=== PATIENT | female | born 1970 | race Caucasian/White ===

== ENCOUNTER → 2022-03-14 | Outpatient (CLI) | payer OTHER ==
[2022-03-14 19:59] LABS: Free Thyroxine 0.77 ng/dL (0.70-1.60)
[2022-03-14 20:02] LABS: Thyroid Stimulating Hormone 1.36 uIU/mL (0.360-4.800); Triiodothyronine, Free 3.44 pg/mL (2.18-3.98)
== END | disposition home or self-care (01) ==
LOC: LAB SHORT 12:05
PROVIDERS: Family Medicine
DX: E03.9 Hypothyroidism, unspecified (principal)
CPT/HCPCS: 84439; 84443; 84481

== ENCOUNTER → 2022-07-28 | Outpatient (CLI) | payer OTHER ==
[2022-07-28 19:35] LABS: BASOPHILS ABSOLUTE AUTO 0.05 K/mm3 (0.00-0.23); BASOPHILS PERCENT AUTO 1 % (0-2); EOSINOPHILS PERCENT AUTO 2 % (0-6); Hemoglobin 14.4 g/dL (11.5-16.0); IMMATURE GRAN ABSOLUTE AUTO 0.02 K/mm3 (0.00-0.10); IMMATURE GRAN PERCENT AUTO 0 % (0-1); LYMPHOCYTES ABSOLUTE AUTO 2.52 K/mm3 (0.84-5.20); LYMPHOCYTES PERCENT AUTO 43 % (21-46); MONOCYTES ABSOLUTE AUTO 0.23 K/mm3 (0.16-1.47); MONOCYTES PERCENT AUTO 4 % (4-13); Mean Corpuscular HGB 29.8 pg (26.0-34.0); Mean Corpuscular HGB Conc 34.3 g/dL (31.5-36.5); Mean Corpuscular Volume 87 fL (80-100); Mean Platelet Volume 10.4 fL (9.1-12.4); NEUTROPHILS PERCENT AUTO 51 % (41-73); Platelet Count 304 K/mm3 (150-400); RDW Coefficient Variation 12.5 % (11.7-14.2); RDW Standard Deviation 39.8 fL (35.1-46.3); Red Blood Cell Count 4.83 M/mm3 (3.80-5.20); White Blood Cell Count 5.92 K/mm3 (4.00-11.30)
[2022-07-28 20:32] LABS: C-REACTIVE PROTEIN, EXT RANGE 0.305 mg/dL (0.000-0.300); Free Thyroxine 0.74 ng/dL (0.70-1.60); Percent Saturation 33.5 % (15.0-50.0); Thyroid Stimulating Hormone 0.221 uIU/mL (0.360-4.800); Triiodothyronine, Free 3.79 pg/mL (2.18-3.98)
[2022-07-31 11:58] LABS: ANA DIRECT Negative (Negative); ANTI-DNA (DS) AB QN <1 IU/mL (0-9); RNP ANTIBODIES <0.2 AI (0.0-0.9); SJOGREN'S ANTI-SS-A <0.2 AI (0.0-0.9); SJOGREN'S ANTI-SS-B <0.2 AI (0.0-0.9); SMITH ANTIBODIES <0.2 AI (0.0-0.9)
== END | disposition home or self-care (01) ==
LOC: LAB SHORT 11:35 → LAB 11:35
PROVIDERS: Family Medicine
DX: E06.3 Autoimmune thyroiditis (principal); D50.9 Iron deficiency anemia, unspecified; M19.90 Unspecified osteoarthritis, unspecified site
CPT/HCPCS: 82728; 83540; 83550; 84439; 84443; 84481; 85025; 85651; 86140; 86200; 86225; 86235; 86431

== ENCOUNTER → 2023-03-27 | Outpatient (CLI) | payer OTHER ==
[2023-03-27 19:33] LABS: BASOPHILS ABSOLUTE AUTO 0.09 K/mm3 (0.00-0.23); BASOPHILS PERCENT AUTO 1 % (0-2); EOSINOPHILS ABSOLUTE AUTO 0.14 K/mm3 (0.00-0.68); EOSINOPHILS PERCENT AUTO 2 % (0-6); Hematocrit 45.9 % (33.0-51.0); Hemoglobin 15.6 g/dL (11.5-16.0); IMMATURE GRAN PERCENT AUTO 4 % (0-1); LYMPHOCYTES PERCENT AUTO 45 % (21-46); MONOCYTES ABSOLUTE AUTO 0.32 K/mm3 (0.16-1.47); MONOCYTES PERCENT AUTO 5 % (4-13); Mean Corpuscular HGB 29.3 pg (26.0-34.0); Mean Corpuscular Volume 86 fL (80-100); Mean Platelet Volume 10.7 fL (9.1-12.4); NEUTROPHILS ABSOLUTE AUTO 2.95 K/mm3 (1.96-9.15); NEUTROPHILS PERCENT AUTO 43 % (41-73); Platelet Count 306 K/mm3 (150-400); RDW Standard Deviation 37.7 fL (35.1-46.3); Red Blood Cell Count 5.32 M/mm3 (3.80-5.20)
[2023-03-27 19:52] LABS: Alanine Aminotransfer (ALT/SGP 34 U/L (12-78); Albumin, Blood 4.1 g/dL (3.4-5.0); Albumin/Globulin Ratio 1.2 (0.8-1.8); Alk Phos 78 U/L (50-136); Anion Gap 3 mmol/L (6-16); Aspartate Aminotrans (AST/SGOT 15 U/L (12-37); Bilirubin, Direct <0.1 mg/dL (0.0-0.3); Bilirubin, Indirect Unable to Calculate mg/dL (0.1-0.7); Bilirubin, Total 0.3 mg/dL (0.1-1.0); Blood Urea Nitrogen 16 mg/dL (8-24); Bun/Creatinine Ratio 21.2 (12.0-20.0); CHOL/HDL RATIO 5.5; CO2, Blood 30 mmol/L (21-32); Calcium, Blood 9.7 mg/dL (8.5-10.1); Chloride, Blood 106 mmol/L (98-108); Cholesterol 290 mg/dL (50-200); Creatinine, Blood 0.75 mg/dL (0.40-1.00); Free Thyroxine 0.62 ng/dL (0.70-1.60); Globulin, Blood 3.5 g/dL (2.2-4.0); Glomerular Filtration Rate 95 (60-); Glucose, Blood 132 mg/dL (70-99); HDL Cholesterol 53 mg/dL (>39); LDL/HDL RATIO 3.3; Low Density Lipoprotein Chol 175 mg/dL (0-110); Potassium, Blood 4.3 mmol/L (3.5-5.5); Sodium, Blood 139 mmol/L (136-145); Thyroid Stimulating Hormone 0.159 uIU/mL (0.360-4.800); Total Protein, Blood 7.6 g/dL (6.4-8.2); Triglycerides 309 mg/dL (30-160); Very Low Density Lipoprot Chol 61 mg/dL (6-32)
== END ==
LOC: LAB SHORT 11:00 → LAB 11:00
PROVIDERS: Family Medicine
DX: Z79.899 Other long term (current) drug therapy (principal)
CPT/HCPCS: 80053; 80061; 82248; 84439; 84443; 85025

== ENCOUNTER → 2024-05-20 | Outpatient (CLI) | payer OTHER | END | disposition home or self-care (01) | LOC: LAB SHORT 18:49 | DX: N39.0 Urinary tract infection, site not specified (principal) | CPT/HCPCS: 87077; 87086; 87186 ==

== ENCOUNTER 2024-07-11 10:36 | Day surgery (SDC) | payer OTHER ==
[~2024-07-11] VITALS: Ht 170.2 cm; Wt 92.1 kg
[2024-07-11] MEDS ORDERED: Clindamycin 900mg in D5W 50ML 50 ML IV ONE (11:06)
[2024-07-11] MEDS ORDERED: METFORMIN HCL500 M2 PO (11:21)
[2024-07-11] MEDS ORDERED: ARMOUR THYROID PO (11:22)
[2024-07-11] MEDS ORDERED: OLANZAPINE1024 PO (11:22)
[2024-07-11] MEDS ORDERED: METO50ER (11:24)
[2024-07-11] MEDS ORDERED: THYR60 PO (11:24)
[2024-07-11] MEDS ORDERED: Lactated Ringer's 1,000 ML IV ONE (11:39)
[2024-07-11] MEDS ORDERED: Lidocaine HCl 2% 10 ML SDA ONE (12:20)
[2024-07-11] MEDS ORDERED: Bupivacaine 0.5% W/EPI 1:200000 SDV 30 ML Vial ONE (12:21)
[2024-07-11] MEDS ORDERED: Ketorolac Tromethamine 30mg Vial ONE (12:34)
[2024-07-11] MEDS ORDERED: propofoL 20 ML IV ONE (12:34)
[2024-07-11] MEDS ORDERED: FentaNYL Citrate 50 MCG/ML 2 ML Injection ONE (12:34)
[2024-07-11] MEDS ORDERED: Ondansetron HCl 2 MG / ML 2ML Vial ONE (12:34)
[2024-07-11] MEDS ORDERED: Dexamethasone Sod Phos 10 MG/ML 1ML VIAL ONE (12:34)
--- NOTE | 2024-07-11 13:15 | NUR ---
07/11/[address] STATES THAT PT WAS IN AFIB AT TIMES DURING SURGERY. STATES THAT MORE SINUS RHYTHM BUT WITH SOME PAC RIGHT NOW. LONG IS NOT SYMPTOMATIC, SHE IS FINE WITH HER GOING HOME. PT HAS HX OF AFIB.
--- NOTE | 2024-07-11 13:48 | NUR ---
07/11/24 1348 LEXIE ZIMMERMAN REPORT GIVEN TO ROBLES SAUCEDA.
[2024-07-11 13:52] VITALS: BP 114/77
[2024-07-11] MEDS ORDERED: HYDROcodone 5-APAP 325 TAB ONE (14:35)
== END 2024-07-11 14:45 | disposition home or self-care (01) ==
LOC: ORSCSDS 10:36
PROVIDERS: Podiatrist Foot & Ankle Surgery
PROC: 0QSP04Z Reposition Left Metatarsal with Internal Fixation Device, Open Approach (ICD-10-PCS; principal; 2024-07-11 12:15)
PROC: 0QBP0ZZ Excision of Left Metatarsal, Open Approach (ICD-10-PCS; principal; 2024-07-11 12:15)
PROC: 0QBR0ZZ Excision of Left Toe Phalanx, Open Approach (ICD-10-PCS; principal; 2024-07-11 12:15)
DX: S93.312A Subluxation of tarsal joint of left foot, initial encounter (principal); M20.5X2 Other deformities of toe(s) (acquired), left foot; I48.91 Unspecified atrial fibrillation; G47.33 Obstructive sleep apnea (adult) (pediatric); F41.9 Anxiety disorder, unspecified; F31.9 Bipolar disorder, unspecified; E11.9 Type 2 diabetes mellitus without complications; Z87.891 Personal history of nicotine dependence; Z79.84 Long term (current) use of oral hypoglycemic drugs; Z79.899 Other long term (current) drug therapy
CPT/HCPCS: 82947; A9270; J1100; J1885; J2003; J2405; J2704; J3010

== ENCOUNTER → 2024-07-15 | Outpatient (CLI) | payer OTHER ==
[~2024-07-15] MED LIST: ARMOUR THYROID PO; METFORMIN HCL500 M2 PO; METO50ER; OLANZAPINE1024 PO; THYR60 PO
[2024-07-17 16:27] LABS: HEPATITIS C AB CIA INTERP Negative (Negative); HEPATITIS C ANTIBODY CIA INDEX 0.03 IV
[2024-07-17 18:22] LABS: HIV 1,2 COMBO ANTIGEN/ANTIBODY Negative (Negative)
== END ==
LOC: LAB SHORT 19:05 → LAB 19:05
PROVIDERS: Nurse Practitioner Family
DX: E55.9 Vitamin D deficiency, unspecified (principal); E53.8 Deficiency of other specified B group vitamins; Z11.4 Encounter for screening for human immunodeficiency virus [HIV]; Z11.59 Encounter for screening for other viral diseases
CPT/HCPCS: 82306; 82607; 82746; 86803; 87389